=== PATIENT | male | born 1940 | race Caucasian/White ===

== ENCOUNTER 2018-04-13 10:02 | Observation (INO) | payer MEDICARE, BC ==
[2018-04-13] MEDS ORDERED: Diazepam TAB(*) 5 MG ONE (10:52)
[2018-04-13] MEDS ORDERED: diPHENhydraMINE PO* 25 MG ONE (10:53)
[2018-04-13] MEDS ORDERED: Midazolam* 1 MG/ML 10 ML VIAL (10 MG) ONE (11:24)
[2018-04-13] MEDS ORDERED: fentaNYL* 50 MCG/ML 2 ML VIAL (100 MCG VIAL) ONE (11:24)
[2018-04-13] MEDS ORDERED: Heparin(*) 1000 UNIT/ML 10 ML VIAL CATH LAB IV ONE (11:24)
[2018-04-13] MEDS ORDERED: nitroGLYCERIN DRIP* 25,000 MCG/250 ML BTL ONE (11:25)
[2018-04-13] MEDS ORDERED: VERAPAMIL 2.5 MG/ML 2 ML VIAL ** 5 mg/2 ml ONE (11:25)
[2018-04-13] MEDS ORDERED: Heparin 2 UNITS/ML IVPREMIX* 3,000 ML IV ONE (11:25)
[2018-04-13] MEDS ORDERED: Iohexol 350 (CONTRAST) 200 ML MDV IV ONE ×2 (11:25)
[2018-04-13] MEDS ORDERED: Lidocaine 1% INJ* 10 MG/ML 30 ML SDV ONE (11:25)
[2018-04-13] MEDS ORDERED: Ticagrelor* 90 MG TAB PO ONE (12:07)
[2018-04-13] MEDS ORDERED: Bivalirudin(*) 250 MG VIAL ONE (12:15)
[2018-04-13] MEDS ORDERED: Adenosine* 3 MG/ML VIAL ONE (12:34)
[2018-04-13] MEDS ORDERED: Zolpidem TAB* 5 MG PO PRN (12:54)
[2018-04-13] MEDS ORDERED: Ondansetron INJ* 2 MG/ML VIAL IV PRN (12:54)
[2018-04-13] MEDS ORDERED: Nitroglycerin TAB 0.4 MG* 0.4 MG TAB SL PRN (12:54)
[2018-04-13] MEDS ORDERED: Acetaminophen TAB* 325 MG PO PRN (12:54)
[2018-04-13] MEDS ORDERED: Docusate CAP* 100 MG PO PRN (12:54)
[2018-04-13] MEDS ORDERED: NS 0.9% 1000 ML** 400 ML IV SCH (13:00)
[2018-04-13] MEDS ORDERED: Atorvastatin* 80 MG TAB PO ONE (13:00)
--- NOTE | 2018-04-13 15:30 | CATH ---
CC: Dr. Leonel Cali; Dr. Anthony Mahmood; Dr. Wilfredo Damon INTERVENTIONAL REPORT: DATE OF PROCEDURE: 04/13/18 INDICATION FOR PROCEDURE: Asked by Dr. Leonel Cali to perform intervention into proximal LAD 95% lesion with a high-risk nuclear stress test and unstable angina, [place] classification IV. PROCEDURE: Primary stenting of the proximal left anterior descending artery utilizing a 3.0 x 12 mm long Synergy drug-eluting stent post dilated to 3.1 to 3.2 mm and FFR analysis of mid LAD lesion. EQUIPMENT UTILIZED: 1. Existing right radial artery sheath was already in place. 2. Interventional guiding catheter was a 6-Hungarian VL 3.5 curved catheter. 3. The interventional wire was a 190 cm All Star wire. 4. The drug-eluting stent utilized - was a 3.0 x 12 mm long Synergy rapid exchange stent. 5. Post deployment high pressure balloon inflation catheter was a 3.0 x 8 mm long NC Emerge balloon. 6. The fractional flow reserve wire was a [employer] [employer] pressure wire X. 7. Closure device utilized was a [employer] radial band. MEDICATIONS GIVEN DURING THE INTERVENTIONAL PROCEDURE: 1. The patient had already received daily aspirin. 2. The patient was given 180 mg of Brilinta in the catheterization laboratory prior to PCI. 3. ACT was checked and found to be subtherapeutic and as such an Angiomax bolus was given and an Angiomax drip was utilized during the intervention. DESCRIPTION OF PROCEDURE: A second time-out was performed. Guiding views were obtained utilizing the VL 3.5 curve guide catheter. The patient had already received Brilinta 180 mg orally and had been on aspirin as an outpatient daily and had received it today. ACT was checked and found to be subtherapeutic. Angiomax was utilized as described above. A 0.014 All Star wire was advanced down the left anterior descending artery and primary stenting was performed utilizing the 3.0 x 12 mm long Synergy drug-eluting stent to the proximal LAD post dilated with the 3.0 x 8 mm long NC Emerge balloon to high pressure. Following this, the artery was assessed for result. Decision was then made to assess the mid LAD lesion by fractional flow reserve analysis. The patient received 2 boluses of adenosine because the first bolus did not record the full strip. Following this, the wire was removed and injection was performed to assess the artery post FFR. At the end of the case, the catheter and sheath were removed and hemostasis was obtained with the Vasc Band. The reverse Barbeau was found to be a B. The total contrast used for the case was 130 cc of Omnipaque dye. The total radiation exposure included 10.3 minutes of fluoro time. The air kerma radiation was 1994 milligray. The DAP radiation was 10,090 microgray per meter square. RESULTS OF THE INTERVENTION: Intervention into proximal left anterior descending artery - successful reduction of critical 95% proximal eccentric LAD lesion with primary stenting utilizing a 3.0 x 12 mm long Synergy drug-eluting stent post dilated to 3.1 to 3.2 mm with 0% residual stenosis, YVETTE 3 flow, and no dissection seen. FRACTIONAL FLOW RESERVE ANALYSIS OF THE LEFT ANTERIOR DESCENDING ARTERY MID LESION: FFR analysis revealed a FFR value of 0.9 consistent with a lesion that was felt not to be hemodynamically significant. OVERALL ASSESSMENT: Successful intervention into proximal left anterior descending as described above with fractional flow reserve analysis suggesting that the mid lesion did not need treatment at this time. Aggressive dual antiplatelet management will be pursued under Dr. Leonel Cali's guidance. Aggressive risk factor management with high-dose statin therapy will be pursued as well and the patient will receive 80 mg of atorvastatin as soon as the patient gets to the intensive care unit. Further ongoing cardiac management will be under the guidance of Leonel Cali, the patient's primary hassock maker. [id number]/[facility] #: [id number] ALEXX
[2018-04-13] MEDS: Ticagrelor* 90 MG TAB PO SCH (20:54)
[2018-04-13] MEDS ORDERED: Atorvastatin* 80 MG TAB PO SCH (21:00)
--- NOTE | 2018-04-13 23:32 | CATH ---
CC: Dr. Mahmood; Dr. Goldy Craig * CARDIAC CATHETERIZATION NOTE: DATE OF PROCEDURE: 04/13/18 - ROOM #ICU-11 PROCEDURE: Cardiac catheterization including coronary angiography. INDICATION: Crescendo angina, abnormal stress test. HISTORY OF PRESENT ILLNESS: The patient is a 78-year-old gentleman with a history of hypertension who has been having crescendo angina for a couple of months. The patient underwent an exercise nuclear stress test in my office on Friday. At that time, he exercised for 4 minutes. He had severe chest pain. He did have ST segment elevations in the anterior leads, which quickly resolved. His images demonstrated anteroapical ischemia. Cardiac catheterization was recommended. DESCRIPTION OF PROCEDURE: The patient was brought to the cardiac catheterization lab in a fasting state. Informed consent had been obtained prior to the procedure. All labs were reviewed. The patient was placed supine on the procedure table. His right radial area was prepped and draped in the usual fashion; 1% lidocaine was used for local anesthesia. The radial artery was entered via Seldinger technique and a guidewire was placed. Over the guidewire, a 6-Kenyan sheath introducer was placed. After the sheath was placed , an infusion of heparin, Cardizem, and nitroglycerin was done. The patient underwent coronary angiography using a 6- Kenyan TIG catheter. At the end of the procedure, the patient went on to have angioplasty and stenting of his LAD. Please see that report from Dr. Craig. A total of 50 cc of contrast was used and 3.9 minutes of fluoro time was used. FINDINGS: 1. Left main artery: Left main was normal in size. It bifurcated into the LAD and circumflex. There was mild calcification of the left main artery. There was no evidence of stenosis. 2. Left anterior descending artery: The LAD was normal in size. It gave off 2 diagonal vessels. The proximal LAD had mild calcification. The mid LAD had a 99% stenosis. The distal LAD had a 40% stenosis. The diagonal vessel had no stenosis. 3. Left circumflex artery: The circumflex artery was normal in size. It gave off 2 obtuse marginal branches. There was mild calcification of the proximal vessel. The remainder of the vessel was without disease. There is no disease in OM 1 or OM 2. 4. Right coronary artery: The RCA was a large dominant vessel. It gave off the PDA. The proximal right coronary artery had an eccentric 30% stenosis followed by a 20% stenosis. The remainder of the vessel was without disease. It gave off the PDA and a large posterolateral branch. IMPRESSION: 1. Critical 99% stenosis to the mid left anterior descending. 2. A 40% stenosis to the distal left anterior descending. 3. A 30% stenosis to the proximal right coronary artery. RECOMMENDATION: The patient will undergo stenting to his LAD. [id number]/[facility] #: [id number] ALEXX
[2018-04-14 06:42] LABS: ABS Basophils 0 10^3/ul (0-0.2); ABS Eosinophils 0.1 10^3/ul (0-0.6); ABS Lymphocytes 0.5 10^3/ul (1.0-4.8); ABS Monocytes 0.5 10^3/ul (0-0.8); ABS Neutrophils 3.7 10^3/ul (1.5-7.7); ABS Nucleated RBC 0 10^3/ul; Eosinophil % 2.2 %; Hematocrit 42 % (42-52); Hemoglobin 14.3 g/dl (14.0-18.0); Lymphocyte % 9.6 %; Mean Corpuscular HGB Conc 34 g/dl (31-36); Mean Corpuscular Hemoglobin 34 pg (27-31); Mean Corpuscular Volume 100 fL (80-94); Mean Platelet Volume 11.2 fL (7.4-10.4); Nucleated Red Blood Cells % 0; Platelet Count 121 10^3/ul (150-450); Red Blood Count 4.23 10^6/ul (4.00-5.40); Red Cell Distribution Width 13 % (10.5-15); White Blood Count 4.8 10^3/ul (3.5-10.8)
[2018-04-14 07:03] LABS: BUN/Creatinine Ratio 14.7 (8-20); Calcium 8.7 mg/dL (8.6-10.3); EGFR African American 92.8 (>60); EGFR Non-African American 76.7 (>60); HDL Cholesterol 51.5 mg/dL; Potassium 3.8 mmol/L (3.5-5.0)
[2018-04-14] MEDS ORDERED: LEVOTHYROXINE 175 MCG PO SCH (09:00)
[2018-04-14] MEDS ORDERED: Aspirin 81 mg CHEW TAB* 81 MG TAB.CHEW PO SCH (09:00)
[2018-04-14] MEDS: Ticagrelor* 90 MG TAB PO SCH (09:08)
[2018-04-14] MEDS ORDERED: Potassium Chlor TAB* 20 MEQ TAB.ER PO ONE (09:30)
[2018-04-14 09:41] LABS: Magnesium 2.1 mg/dL (1.9-2.7)
[2018-04-14] MEDS ORDERED: Metoprolol Tartrate TAB* 25 MG PO SCH (10:00)
--- NOTE | 2018-04-14 12:48 | DS ---
AMENDED REPORT NOW INCLUDES DESIGNATED COSIGNER - ESIGNED BEFORE ADJUSTMENTS DISCHARGE SUMMARY: DATE OF ADMISSION: 04/13/18 DATE OF DISCHARGE: Tentative date of discharge pending no complications, . ATTENDING PHYSICIAN: Dr. Leonel Cali, Cardiology * (dictated by Saba López , Nurse Practitioner). PRIMARY PHYSICIAN: Dr. Mahmood. ADMITTING DIAGNOSES: 1. Crescendo chest pain with positive exercise nuclear stress test which revealed ST elevation in V2, V3 with moderate area of ischemia in septal apical wall and apex, here for elective left heart catheterization. 2. History of hypothyroidism, on levothyroxine therapy. 3. Crescendo chest pain, please refer to above #1. DISCHARGE DIAGNOSES: 1. Abnormal exercise stress test with myocardial perfusion status post left heart catheterization which resulted in 3.0 x 12 mm long Synergy drug-eluting stent to proximal LAD, on aspirin 81 mg a day, Brilinta 90 mg p.o. b.i.d., Lopressor 12.5mg a day, and Lipitor 80 mg p.o. q.h.s. She will follow up with Dr. Leonel Cali 04/22/18 at 3:15 p.m. 2. Newly diagnosed coronary artery disease, on aspirin, statin and Lopressor therapy. 3. Hyperlipidemia, LDL during this admit was 93. He was started on Lipitor 80 mg p.o. q.h.s. [facility] lipid and hepatic function test in 6 to 8 weeks due to initiation of high intensity statin therapy. 4. NSVT with 17 beat count of monomorphic VT at 0900 and venticular bigeminy at 0730, Lopressor 12.5mg Po daily was started. PROCEDURES PERFORMED: The patient underwent an elective left heart catheterization by Dr. Leonel Cali on 04/13/18 via right radial access. A 6- Swedish sheath catheter was placed. Left main was normal, bifurcated into the LAD and circumflex. Mild calcification involving the left main artery. No stenosis. LAD was normal in size, gave off two diagonals. The proximal LAD had mild calcification, mid LAD had 99% stenosis. Distal LAD 40% stenosis, diagonal vessel had no stenosis. Circumflex was normal in size, gave off to obtuse marginal branches. There was no disease in OM 1 or 2. Right coronary artery was a large dominant vessel gave off to PDA. Proximal right coronary artery had eccentric 30% stenosis followed by 20% stenosis. PDA was free of disease. Dr. Craig proceeded to place 3.0 x 12 mm long Synergy drug-eluting stent. FFR of lesion was 0.9. YVETTE flow 3, no evidence of dissection. COMPLICATIONS: None thus far. COURSE OF HOSPITAL STAY: This is a pleasant 78-year-old male patient of Dr. Leonel Cali who was seen in our office due to crescendo type chest pain. He was risk stratified with exercise stress test with myocardial perfusion imaging. Unfortunately, he developed ST elevation in leads V2, V3 with complaints of crushing chest pain that resolved. Nuclear imaging demonstrated moderate size area of ischemia in his septal apical wall and apex. Thus he presented to [facility] [place] 04/13/18 for elective left heart catheterization. Prior to having procedure performed, he had basic blood work drawn on 04/10/18, white count 5, hemoglobin 14.5, hematocrit 43, platelets 136. Sodium 141, potassium 4.2, creatinine 1.03, LDL was updated during this admission which was 83. He underwent successful RL/LAD and was monitored overnight in the ICU. He has been up and ambulating with no difficulty and offers no complaints. He had a brief period at 0730 today of ventricular bigeminy on telemetry. At 0900 17 beat count of NSVT while sitting in a chair, asymptomatic. K+ (3.8)was replaced with 20 MEW K-Dur x1 and he was started on Lopressor 12.5mg PO daily. He is to me monitored on telemetry today and if there is no reoccurrence of NSVT will likely go home later today. Magnesium level this morning was 2.1. Discharge diet: low cholesterol, low fat diet. Driving restrictions; no driving for 48 hours Activity: no heavy lifting > 5 lbs for 7-10 days. Follow Up: Follow up with Dr. Cali on 04/22/2018 at 3:15pm as preciously directed. Outpatient Labs: LFT and FLP in 6-8 weeks due to initiation of statin therapy. Discharge medications: per D/C med rec. SABA LÓPEZ, RN WELL[facility] [id number]/[facility] #: [id number] ALEXX
[2018-04-14 16:40] VITALS: BP 133/78
[2018-04-14] MEDS ORDERED: Atorvastatin* 80 MG TAB PO SCH (21:00)
[2018-04-14] MEDS ORDERED: Atorvastatin* 80 MG TAB PO ONE (21:00)
== END 2018-04-14 17:18 | disposition home or self-care (01) ==
LOC: CHICATH 10:02 → ICU 12:55
PROVIDERS: ADMIT Specialist; ATTEND Specialist
DX: I20.0 Unstable angina (principal); R06.02 Shortness of breath; R07.9 Chest pain, unspecified; R94.39 Abnormal result of other cardiovascular function study
CPT/HCPCS: 36415; 80048; 80061; 83735; 85025; 85347; 87641; 93005; 93454; 96374; 96375; 99156; 99157; A9270-GY; C1725; C1769; C1876; C1887; C9600-LD; G0378; J0153; J0583; J1644; J2250; J3010